=== PATIENT | male | born 1965 | race Caucasian/White ===

== ENCOUNTER → 2016-05-03 | Outpatient (CLI) | payer OTHER ==
[~2016-05-03] MED LIST: /ONDA4TA OR; ALLO300T OR; ASPI1TAB24 PO; ASPI81TA83 OR; BACTRIM OR; CODCAP PR; COLA100C2 PO; DEXAMETHASONE OR; LEVA500T PO; MULTIVIT PO; OMEP20TA7 OR; OXYC15TA76 PO; PERC5TAB8 OR; PLAV75TA2 OR; SENN8.6T14 OR; SENNSYP OR; SULF800T OR; VALT500T OR; [UNRECOGNIZED DRUG - OTHER] PO
[2016-05-03 11:30] LABS: MEAN CORPUSCULAR HEMOGLOBIN 30.2 pg (27.0-33.0); MEAN CORPUSCULAR HGB CONC 33.6 g/dl (32.0-36.5); MEAN CORPUSCULAR VOLUME 89.9 fl (80.0-96.0); RED CELL DISTRIBUTION WIDTH 12.7 % (11.5-14.5); WHITE BLOOD COUNT 4.9 K/mm3 (4.0-10.0)
[2016-05-03 11:38] LABS: INR 0.96
[2016-05-03 12:19] LABS: ALBUMIN 3.9 GM/DL (3.2-5.2); ALBUMIN/GLOBULIN RATIO 1.08 (1.00-1.93); ALKALINE PHOSPHATASE 77 U/L (45-117); ALT/SGPT 58 U/L (12-78); ANION GAP 8 MEQ/L (8-16); AST/SGOT 32 U/L (15-37); BILIRUBIN,TOTAL 0.3 MG/DL (0.2-1.0); BLOOD UREA NITROGEN 27 MG/DL (7-18); CALCIUM LEVEL 9.7 MG/DL (8.5-10.1); CARBON DIOXIDE LEVEL 29 MEQ/L (21-32); CHLORIDE LEVEL 105 MEQ/L (98-107); CREATININE FOR GFR 0.95 MG/DL (0.70-1.30); GLOMERULAR FILTRATION RATE > 60.0 (>56); GLUCOSE, FASTING 97 MG/DL (70-105); POTASSIUM SERUM 4.4 MEQ/L (3.5-5.1); SODIUM LEVEL 142 MEQ/L (136-145); TOTAL PROTEIN 7.5 GM/DL (6.4-8.2)
--- NOTE | 2016-05-03 20:54 | REP ---
Clinical: Dystonia. Comparison: 04/29/2013 . Technique: PA and lateral. Findings: The mediastinum and cardiac silhouette are normal. The lung villatoro are clear and without acute consolidation, effusion, or pneumothorax. The skeletal structures are intact and normal. Impression: 1. No acute cardiopulmonary process. Signed by Ermias White MD 05/03/2016 08:39 P
--- NOTE | 2016-05-05 16:37 | ECGEPIP ---
Stationary ECG Study [facility] Test Date: 2016-05-03 Pat Name: CARMEN DESAI Department: Room: - Gender: M System Admin: : 1965 Requested By: Curtis Briones Order Number: [id number] Reading MD: Rip Alba Measurements Intervals [place] Rate: 65 P: 63 NH: 157 QRS: 23 QRSD: 87 T: 23 QT: 384 QTc: 401 Interpretive Statements SINUS RHYTHM NORMAL Electronically Signed On 05-05-2016 16:37:12 EST by Rip Alba
== END ==
LOC: M ADMPAT 09:47
PROVIDERS: ATTEND Orthopaedic Surgery
DX: Z01.818 Encounter for other preprocedural examination (principal); M16.11 Unilateral primary osteoarthritis, right hip; Z79.899 Other long term (current) drug therapy

== ENCOUNTER 2016-05-17 07:28 | Inpatient (IN) | payer OTHER ==
[2016-05-03 10:27] VITALS: BP 145/100
--- NOTE | 2016-05-12 14:31 | HPE ---
DATE OF ADMISSION: 05/17/2016 CHIEF COMPLAINT: Right hip pain. HISTORY OF PRESENT ILLNESS: This is a pleasant 51-year-old male with progressively worsening right hip pain and stiffness. He has failed to improve with conservative treatment. He has elected for surgery for his continued symptoms. He has pain with weightbearing activities and his activities of daily living. X-rays of his hip are notable for advanced avascular necrosis (AVN) with collapse of the femoral head. He has consented for a right total hip arthroplasty by Dr. Curtis Briones. Medical optimization was performed by Dr. Garg at the [facility] ([place]). ALLERGIES: No known allergies. CURRENT MEDICATIONS: - hydrocodone 5/325 one every 6 hours as needed - baby aspirin once a day PAST MEDICAL HISTORY: This patient does have multiple myeloma and some dystonia. PAST SURGICAL HISTORY: None. 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 He does not smoke and he occasionally drinks alcohol. FAMILY HISTORY: Noncontributory. REVIEW OF SYSTEMS: This patient denies chest pain, heart palpitations, cough, wheezing, difficulty breathing and shortness of breath. He denies abdominal pain, nausea, vomiting, diarrhea or constipation. He denies recent upper respiratory infection or urinary tract infection symptoms. He does complain of persistent pain in his right hip and pain with weightbearing activities of his right hip. PHYSICAL EXAMINATION General: He is a well-nourished, well-developed in no acute distress, adult male. He walks with a moderate limp favoring his right lower extremity. He is not using assistive devices. Vital signs: He is 5 feet 10, weighs 202 pounds, with a temperature of 96.7, blood pressure 121/82, respirations of 17, and pulse of 85. Neck was supple without adenopathy or jugular venous distension. There were no carotid bruits appreciated upon auscultation. Lungs were clear to auscultation without rales or wheeze throughout. Heart regular rate and rhythm. Abdomen: Bowel sounds were present. Extremities: Examination of the hip revealed intact skin without erythema, edema or ecchymosis. He had decreased range of motion on internal and external rotation of the hip secondary to pain and stiffness. The limb is neurovascularly intact. LABORATORY DATA: Chest x-ray showed no acute cardiopulmonary disease processes. EKG showed sinus rhythm at 65 beats per minute. Urinalysis (UA) was within normal limits with a specific gravity of 1.019. Protime 12.9, INR 0.96. CBC was within normal limits. Sedimentation rate was 19. Glucose 97, BUN 27, creatinine 0.95, sodium 142, potassium 4.4. Urine culture showed no growth. Nasal and sinus culture showed normal jordan. IMPRESSION: Symptomatic avascular necrosis (AVN) of the right hip joint. PLAN: Consented for a right total hip arthroplasty by Dr. Curtis Briones.
[~2016-05-17] VITALS: Ht 177.8 cm; Wt 91.0 kg
[2016-05-17] VITALS (7 sets, daily range): BP systolic 106–126; BP diastolic 56–79
[2016-05-17] MEDS ORDERED: LR 1,000 ML IV SCH ×3 (07:45→12:15)
[2016-05-17] MEDS ORDERED: BUPIVACAINE HCL 0.25% 10 ML VIAL As Ordered ONE (09:32)
[2016-05-17] MEDS ORDERED: BUPIVACAINE HCL 0.25% 30 ML VIAL As Ordered ONE (09:32)
[2016-05-17] MEDS ORDERED: ceFAZolin 1GM INJ (J0690) As Ordered ONE (09:32)
[2016-05-17] MEDS ORDERED: EPINEPHrine INJ 1 MG/ML 1ML VIAL/AMP As Ordered ONE (09:32)
[2016-05-17] MEDS ORDERED: TRANEXAMIC ACID 100 MG/ML 10ML VIAL As Ordered ONE (09:32)
[2016-05-17] MEDS ORDERED: fentaNYL 100 MCG/2 ML INJECTION (J3010) As Ordered ONE ×2 (09:57→10:01)
[2016-05-17] MEDS ORDERED: PROPOFOL 200 MG/20 ML VIAL As Ordered ONE (10:27)
[2016-05-17] MEDS ORDERED: MIDAZOLAM INJ 2 MG/2 ML VIAL (J2250) As Ordered ONE (10:27)
[2016-05-17] MEDS ORDERED: LIDOCAINE 2% INJ 100 MG/5 ML SDV (FOR ANES.) As Ordered ONE (10:27)
[2016-05-17] MEDS ORDERED: fentaNYL 100 MCG/2 ML INJECTION (J3010) XX ONE (10:31)
[2016-05-17] MEDS ORDERED: TRANEXAMIC ACID 100 MG/ML 10ML VIAL XX ONE (10:31)
[2016-05-17] MEDS ORDERED: BUPIVACAINE HCL 0.25% 30 ML VIAL XX ONE (10:31)
[2016-05-17] MEDS ORDERED: ceFAZolin 1GM INJ (J0690) IR ONE (10:31)
[2016-05-17] MEDS ORDERED: EPINEPHrine INJ 1 MG/ML 1ML VIAL/AMP XX ONE (10:31)
[2016-05-17] MEDS ORDERED: ePHEDrine SULFATE 25 MG/5 ML(5MG/ML) SYRINGE As Ordered ONE (10:55)
[2016-05-17] MEDS ORDERED: MORPHINE PCA 1MG/ML 100ML CADD As Ordered ONE (11:53)
[2016-05-17] MEDS ORDERED: MORPHINE 2 MG/ML 1ML SYRINGE IV PRN (12:15)
[2016-05-17] MEDS ORDERED: ONDANSETRON 4MG/2ML VIAL (J2405) IV PRN ×2 (12:15→12:30)
[2016-05-17] MEDS ORDERED: fentaNYL 100 MCG/2 ML INJECTION (J3010) IV PRN (12:15)
[2016-05-17] MEDS ORDERED: NALBUPHINE HCL 10 MG/ML AMP (J2300) IV PRN (12:30)
[2016-05-17] MEDS ORDERED: MORPHINE PCA 1MG/ML 100ML CADD IV PRN (12:30)
[2016-05-17] MEDS ORDERED: NALOXONE INJ 0.4 MG/1 ML VIAL (J2310) IV PRN (12:30)
[2016-05-17] MEDS ORDERED: ACETAMINOPHEN TAB 650MG DOSE (2X325MG) PO PRN (12:30)
[2016-05-17] MEDS ORDERED: diphenhydrAMINE INJ 50MG/ML VIAL (J1200) IV PRN (12:30)
[2016-05-17] MEDS ORDERED: EPIDURAL/PCA KEYS XX PRN (12:30)
[2016-05-17] MEDS ORDERED: FLEET ENEMA PR PRN (12:30)
--- NOTE | 2016-05-17 12:40 | RO ---
DATE OF PROCEDURE: 05/17/2016 PREPROCEDURE DIAGNOSIS: Right hip avascular necrosis. POSTPROCEDURE DIAGNOSIS: Right hip avascular necrosis. OPERATION PERFORMED: Right total hip replacement. SURGEON: Curtis Briones MD FOSTER CARE THERAPIST: ELOY Yusuf HISTORY: A 51-year-old male with increasing pain and limited range of motion due to avascular necrosis of the right hip. FINDINGS AT SURGERY: Avascular necrosis of femoral head with grossly loose fracture and bone on the acetabular side. The patient did have severe chondromalacia superiorly where that piece had been rubbing. A 56 cup was installed. The 36 mm liner was utilized. A #4 [place] stem with a 1.5 mm neck and a 36 head. BLOOD LOSS: 200 mL. Mr. Peng helped by retracting vital structures and manipulating the leg in order to expedite the procedure. DESCRIPTION OF PROCEDURE: After spinal anesthesia, Gill catheter was placed. The patient was positioned right side up in the [place] and padded appropriately. Leg was prepped and draped free. An incision made anterolateral exposure. The vastus lateralis was divided in line with its fibers. The abductors reflected anteriorly. The labrum was incised. The hip dislocated. Intermedullary canal was opened with a reamer and reamed to a number 4. The neck was divided and the head delivered with the above findings. Then the acetabulum was exposed. There was a tremendous amount of edematous tissue in the area that was quite friable. Labrum was excised and we sequentially reamed from a 48 up to a 55 mm. At that point, there was good bleeding bone on the anterior rim. We were running out of tissue anteriorly in terms of the acetabulum. The 55 reamer had a good rim fit at that point and it was removed and the area irrigated. A 56 mm cup was malleted into place and the apex hole eliminator installed, as was the polyethylene. We broached to a #4. Trial reduction done with the 1.5 x 36 head/neck combination. Upon dislocating, I felt the acetabulum might have moved and so the stem was removed. Acetabular exposure was obtained and an impactor utilized to reposition the cup. It was then malleted into place. It was firmly fixed. I pushed on either side and was unable to move it. It was in acceptable position. The femoral canal was then irrigated with orthopedic solution and the permanent stem malleted into place. The Larkin taper was engaged and the hip reduced. Capsule closed with heavy PDS suture. The PainBuster catheter was threaded into the joint for postop analgesia. TXA was instilled into the joint for postoperative hemostasis. The abductors were then repaired back to their insertion at the trochanter with heavy PDS suture. The same with the IT band. Subcutaneous closed with #2-0 PDS. Aida for skin. Estimated blood loss around 200 mL. None replaced intraoperatively. The patient was then turned flat, abduction pillow applied. Sequential compression stockings applied. The patient discharged to recovery room.
[2016-05-17] MEDS: PERCOCET 5MG/325MG TAB PO PRN ×2 (13:40→14:00)
[2016-05-17] MEDS ORDERED: PERCOCET 5MG/325MG TAB As Ordered ONE (13:49)
[2016-05-17] MEDS: D5W/0.45% SODIUM CHLORIDE 1,000 ML IV SCH ×2 (15:46→22:30)
[2016-05-17] MEDS ORDERED: PATIENT IS CURRENTLY ON AN ON-Q PAIN BUSTER PAIN RELIEF SYSTEM XX SCH (16:45)
[2016-05-17] MEDS ORDERED: WARFARIN SOD 5 MG TAB PO ONE (17:00)
[2016-05-18 02:00] VITALS: BP 115/69
[2016-05-18 06:00] VITALS: BP 121/66
[2016-05-18] MEDS ORDERED: ONDANSETRON 4 MG TAB (S0181) PO PRN (06:45)
[2016-05-18] MEDS ORDERED: PERCOCET 5MG/325MG TAB PO PRN (06:45)
[2016-05-18 06:53] LABS: MEAN CORPUSCULAR HEMOGLOBIN 30.4 pg (27.0-33.0); MEAN CORPUSCULAR HGB CONC 33.4 g/dl (32.0-36.5); MEAN CORPUSCULAR VOLUME 90.9 fl (80.0-96.0); RED CELL DISTRIBUTION WIDTH 13.5 % (11.5-14.5); WHITE BLOOD COUNT 5.5 K/mm3 (4.0-10.0)
[2016-05-18 06:58] LABS: INR 1.15
[2016-05-18] MEDS: PERCOCET 5MG/325MG TAB PO PRN ×2 (08:33→12:32)
[2016-05-18] MEDS: MOM 30ML SUSPENSION UDC PO SCH (09:43)
[2016-05-18] MEDS: SENOKOT S TAB PO SCH ×2 (09:44→19:50)
[2016-05-18] MEDS: MIRALAX *UNIT DOSE* 17GM PACKET PO SCH (09:44)
[2016-05-18 10:00] VITALS: BP 122/73
--- NOTE | 2016-05-18 10:42 | REP ---
Right hip: Two views. History: Postop check placement. Findings: A right hip arthroplasty is seen in good position. Lateral skin bruna and soft tissue swelling are noted. Signed by Víctor Schmidt MD 05/18/2016 08:09 P
[2016-05-18 14:00] VITALS: BP 110/64
[2016-05-18] MEDS ORDERED: WARFARIN SOD 5 MG TAB PO ONE (17:00)
[2016-05-18 22:00] VITALS: BP 126/73
[2016-05-19 06:53] LABS: INR 1.14
[2016-05-19] MEDS ORDERED: MAGNESIUM CITRATE 300 ML BTL PO ONE (07:45)
[2016-05-19] MEDS: MOM 30ML SUSPENSION UDC PO SCH (08:08)
[2016-05-19] MEDS: MIRALAX *UNIT DOSE* 17GM PACKET PO SCH (08:09)
[2016-05-19] MEDS: SENOKOT S TAB PO SCH (08:09)
[2016-05-19] MEDS: PERCOCET 5MG/325MG TAB PO PRN (08:09)
[2016-05-19] MEDS ORDERED: PERC5TAB6 PO (08:11)
[2016-05-19] MEDS ORDERED: COUM2.5T11 PO (08:11)
[2016-05-19] MEDS ORDERED: INFLUENZA QUADRIVALENT PF VACCINE 0.5ML SYRINGE/VIAL (90686) IM ONE (09:00)
[2016-05-19] MEDS ORDERED: WARFARIN SOD 7.5 MG TAB PO ONE (17:00)
--- NOTE | 2016-05-23 17:30 | DSES ---
DATE OF ADMISSION: 05/17/2016 DATE OF DISCHARGE: 05/19/2016 ADMITTING DIAGNOSIS: Right hip avascular necrosis. OTHER DIAGNOSES: 1. Multiple myeloma. 2. Dystonia. DISCHARGE DIAGNOSIS: Right hip avascular necrosis status post right total hip arthroplasty. HISTORY OF PRESENT ILLNESS: Patient is a 51-year-old male with symptomatic right hip avascular necrosis. He has consented for a right total hip arthroplasty with Dr. Briones. Patient was admitted on the day of surgery for this elective procedure. OPERATION PERFORMED: Right total hip arthroplasty. HOSPITAL COURSE: The patient underwent a right total hip arthroplasty under spinal anesthesia which was uneventful. His hospital course was without complication. Patient was up weightbearing as tolerated with a walker. He will continue his preoperative medications and diet. Patient will take Coumadin and use thromboembolic deterrent stockings for 30 days for deep venous thrombosis prophylaxis. Patient will followup in our office in 10-14 days for a wound check and staple removal. The patient is encouraged to contact our office sooner if there is any increased pain, drainage, bleeding, redness, numbness and tingling in his extremity, fever greater than 101 degrees, or any other concerns. Please see the medical record for further details.
== END 2016-05-19 12:50 | disposition home or self-care (01) | DRG 470 ==
LOC: M OR 07:28 → M MS5PR 14:15
PROVIDERS: ADMIT Orthopaedic Surgery; ATTEND Orthopaedic Surgery
PROC: 0SR90JZ Replacement of Right Hip Joint with Synthetic Substitute, Open Approach (ICD-10-PCS; principal; 2016-05-17 09:00)
DX: M87.051 Idiopathic aseptic necrosis of right femur (principal)

== ENCOUNTER → 2016-05-24 | Outpatient (REF) | payer OTHER ==
[~2016-05-24] MED LIST changes: +COUM2.5T11 PO; +PERC5TAB6 PO
[2016-05-24 15:13] LABS: INR 1.16
== END ==
LOC: M LAB REF 14:35
PROVIDERS: ATTEND Nurse Practitioner Family
DX: Z79.01 Long term (current) use of anticoagulants (principal)

== ENCOUNTER → 2016-05-26 | Outpatient (REF) | payer OTHER ==
[2016-05-26 18:07] LABS: INR 1.03
== END ==
LOC: M LAB REF 16:47
PROVIDERS: ATTEND Nurse Practitioner Family
DX: Z47.1 Aftercare following joint replacement surgery (principal); Z79.01 Long term (current) use of anticoagulants

== ENCOUNTER → 2016-05-30 | Outpatient (REF) | payer OTHER ==
[2016-05-30 12:44] LABS: INR 1.35
== END ==
LOC: M LAB REF 11:44
PROVIDERS: ATTEND Nurse Practitioner Family
DX: Z47.1 Aftercare following joint replacement surgery (principal); Z79.01 Long term (current) use of anticoagulants

== ENCOUNTER → 2016-07-01 | Outpatient (REF) | payer OTHER ==
[2016-07-01 12:52] LABS: TOTAL PROTEIN 7.2 GM/DL (6.4-8.2)
[2016-07-03 00:06] LABS: FREE KAPPA LIGHT CHAINS SERUM 134.75 mg/L (3.30-19.40); FREE LAMBDA LIGHT CHAINS SERUM 9.7 mg/L (5.71-26.30); KAPPA/LAMBDA RATIO SERUM 13.89 (0.26-1.65)
[2016-07-04 12:37] LABS: ALBUMIN 4.11 GM/DL (3.29-5.55); ALBUMIN % 57.1 % (55.8-66.1); GAMMA GLOBULIN % 16.8 % (11.1-18.8)
== END ==
LOC: M LAB REF 12:20
PROVIDERS: ATTEND Internal Medicine Medical Oncology
DX: C90.00 Multiple myeloma not having achieved remission (principal)

== ENCOUNTER → 2016-09-27 | Outpatient (REF) | payer OTHER ==
[2016-09-27 13:37] LABS: TOTAL PROTEIN 7.3 GM/DL (6.4-8.2)
[2016-09-29 00:07] LABS: FREE KAPPA LIGHT CHAINS SERUM 273.31 mg/L (3.30-19.40); FREE LAMBDA LIGHT CHAINS SERUM 6.68 mg/L (5.71-26.30); KAPPA/LAMBDA RATIO SERUM 40.91 (0.26-1.65)
[2016-09-29 12:29] LABS: ALBUMIN 4.31 GM/DL (3.29-5.55); GAMMA GLOBULIN % 16.5 % (11.1-18.8)
== END ==
LOC: M LAB REF 12:20
PROVIDERS: ATTEND Internal Medicine Medical Oncology
DX: C90.00 Multiple myeloma not having achieved remission (principal)

== ENCOUNTER → 2017-02-01 | Outpatient (REF) | payer OTHER ==
[~2017-02-01] MED LIST changes: +ASPI-161 PO; -ASPI1TAB24 PO; -COUM2.5T11 PO; +COUM2.5T17 PO; +PERC5TAB12 PO; -PERC5TAB6 PO
[2017-02-01 17:03] LABS: IMMUNOGLOBULIN A 30.2 MG/DL (70-400); IMMUNOGLOBULIN G 1210 MG/DL (681-1648)
[2017-02-01 17:58] LABS: IMMUNOGLOBULIN M 18.4 MG/DL (40-230)
[2017-02-02 12:55] LABS: ALBUMIN 4.15 GM/DL (3.29-5.55); ALBUMIN % 59.3 % (55.8-66.1)
[2017-02-04 00:07] LABS: FREE KAPPA LIGHT CHAINS SERUM 514.7 mg/L (3.3-19.4); FREE LAMBDA LIGHT CHAINS SERUM 2.6 mg/L (5.7-26.3); KAPPA/LAMBDA RATIO SERUM 197.96 (0.26-1.65)
== END ==
LOC: M LAB REF 15:25
PROVIDERS: ATTEND Internal Medicine Medical Oncology
DX: C90.00 Multiple myeloma not having achieved remission (principal)

== ENCOUNTER → 2017-03-21 | Outpatient (REF) | payer OTHER ==
[2017-03-21 14:39] LABS: IMMUNOGLOBULIN G 1210 MG/DL (681-1648); TOTAL PROTEIN 7.1 GM/DL (6.4-8.2)
[2017-03-21 15:16] LABS: IMMUNOGLOBULIN A 24.9 MG/DL (70-400)
[2017-03-21 15:17] LABS: IMMUNOGLOBULIN M 18.5 MG/DL (40-230)
[2017-03-22 14:06] LABS: ALBUMIN 4.23 GM/DL (3.29-5.55); ALBUMIN % 59.6 % (55.8-66.1); GAMMA GLOBULIN % 15.8 % (11.1-18.8)
[2017-03-23 00:06] LABS: FREE KAPPA LIGHT CHAINS SERUM 685.5 mg/L (3.3-19.4); KAPPA/LAMBDA RATIO SERUM 228.5 (0.26-1.65)
== END ==
LOC: M LAB REF 13:43
PROVIDERS: ATTEND Internal Medicine Medical Oncology
DX: C90.00 Multiple myeloma not having achieved remission (principal)

== ENCOUNTER → 2017-05-03 | Outpatient (REF) | payer OTHER ==
[2017-05-03 14:39] LABS: IMMUNOGLOBULIN G 1210 MG/DL (681-1648); TOTAL PROTEIN 7.8 GM/DL (6.4-8.2)
[2017-05-03 15:06] LABS: IMMUNOGLOBULIN A 22.6 MG/DL (70-400); IMMUNOGLOBULIN M 11.9 MG/DL (40-230)
[2017-05-04 11:50] LABS: ALBUMIN 4.35 GM/DL (3.29-5.55); ALBUMIN % 55.8 % (55.8-66.1); ALPHA-1-GLOBULIN % 4.8 % (2.9-4.9); ALPHA-1-GLOBULINS 0.37 GM/DL (0.17-0.41); ALPHA-2-GLOBULINS 1.07 GM/DL (0.42-0.99); ALPHA-2-GLOBULINS % 13.7 % (7.1-11.8); BETA-1-GLOBULINS 0.44 GM/DL (0.28-0.60); BETA-1-GLOBULINS % 5.6 % (4.7-7.2); BETA-2-GLOBULINS 0.35 GM/DL (0.19-0.55); BETA-2-GLOBULINS % 4.5 % (3.2-6.5); GAMMA GLOBULIN % 15.6 % (11.1-18.8); GAMMA GLOBULINS 1.22 GM/DL (0.65-1.58)
[2017-05-06 00:06] LABS: FREE KAPPA LIGHT CHAINS SERUM 829.7 mg/L (3.3-19.4); FREE LAMBDA LIGHT CHAINS SERUM 3.4 mg/L (5.7-26.3); KAPPA/LAMBDA RATIO SERUM 244.03 (0.26-1.65)
== END ==
LOC: M LAB REF 13:08
DX: C90.00 Multiple myeloma not having achieved remission (principal)
CPT/HCPCS: 84165

== ENCOUNTER → 2017-07-12 | Outpatient (REF) | payer OTHER ==
[2017-07-12 13:45] LABS: URINE TOTAL PROTEIN < 5.0 MG/DL (0-12)
[2017-07-12 13:53] LABS: IMMUNOGLOBULIN A 29.7 MG/DL (70-400); IMMUNOGLOBULIN G 613 MG/DL (681-1648); IMMUNOGLOBULIN M 24.9 MG/DL (40-230); TOTAL PROTEIN 6.5 GM/DL (6.4-8.2)
[2017-07-14 00:06] LABS: FREE KAPPA LIGHT CHAINS SERUM 8.5 mg/L (3.3-19.4); FREE LAMBDA LIGHT CHAINS SERUM 7.7 mg/L (5.7-26.3)
[2017-07-14 13:48] LABS: ALBUMIN 3.95 GM/DL (3.29-5.55); ALBUMIN % 60.8 % (55.8-66.1); ALPHA-1-GLOBULIN % 5.2 % (2.9-4.9); ALPHA-2-GLOBULINS % 13.6 % (7.1-11.8); BETA-1-GLOBULINS % 6.1 % (4.7-7.2); BETA-2-GLOBULINS % 5.1 % (3.2-6.5); GAMMA GLOBULIN % 9.2 % (11.1-18.8)
[2017-07-14 13:49] LABS: ALPHA-1-GLOBULINS 0.34 GM/DL (0.17-0.41); ALPHA-2-GLOBULINS 0.88 GM/DL (0.42-0.99); BETA-2-GLOBULINS 0.33 GM/DL (0.19-0.55)
== END ==
LOC: M LAB REF 12:59
DX: C90.00 Multiple myeloma not having achieved remission (principal)

== ENCOUNTER → 2017-07-26 | Outpatient (REF) | payer OTHER ==
[2017-07-26 14:20] LABS: IMMUNOGLOBULIN A 33.5 MG/DL (70-400); IMMUNOGLOBULIN G 575 MG/DL (681-1648); TOTAL PROTEIN 6.6 GM/DL (6.4-8.2)
[2017-07-26 14:27] LABS: URINE TOTAL PROTEIN 14.4 MG/DL (0-12)
[2017-07-26 14:56] LABS: IMMUNOGLOBULIN M 21.1 MG/DL (40-230)
[2017-07-27 13:08] LABS: ALBUMIN 4.03 GM/DL (3.29-5.55); ALBUMIN % 61.1 % (55.8-66.1); ALPHA-1-GLOBULINS 0.33 GM/DL (0.17-0.41); ALPHA-2-GLOBULINS % 13.9 % (7.1-11.8); BETA-1-GLOBULINS % 6.1 % (4.7-7.2); BETA-2-GLOBULINS % 5.1 % (3.2-6.5); GAMMA GLOBULIN % 8.8 % (11.1-18.8)
[2017-07-27 13:09] LABS: ALPHA-2-GLOBULINS 0.92 GM/DL (0.42-0.99); BETA-2-GLOBULINS 0.34 GM/DL (0.19-0.55); GAMMA GLOBULINS 0.58 GM/DL (0.65-1.58)
[2017-07-27 14:02] LABS: UPEP INTERPRETATION NO M-SPIKE NOTED
[2017-07-28 00:07] LABS: FREE KAPPA LIGHT CHAINS SERUM 6.9 mg/L (3.3-19.4); FREE LAMBDA LIGHT CHAINS SERUM 6.7 mg/L (5.7-26.3); KAPPA/LAMBDA RATIO SERUM 1.03 (0.26-1.65)
== END ==
LOC: M LAB REF 13:08
DX: C90.00 Multiple myeloma not having achieved remission (principal)
CPT/HCPCS: 84165

== ENCOUNTER → 2017-08-23 | Outpatient (REF) | payer OTHER ==
[2017-08-23 13:58] LABS: URINE TOTAL PROTEIN 16.6 MG/DL (0-12)
[2017-08-23 14:08] LABS: IMMUNOGLOBULIN G 544 MG/DL (681-1648); TOTAL PROTEIN 6.2 GM/DL (6.4-8.2)
[2017-08-23 15:10] LABS: IMMUNOGLOBULIN M 20.6 MG/DL (40-230)
[2017-08-24 11:37] LABS: ALBUMIN % 60.6 % (55.8-66.1); ALPHA-1-GLOBULIN % 5.3 % (2.9-4.9); ALPHA-2-GLOBULINS % 14.6 % (7.1-11.8); BETA-1-GLOBULINS % 5.9 % (4.7-7.2); BETA-2-GLOBULINS % 5.1 % (3.2-6.5)
[2017-08-24 11:38] LABS: ALBUMIN 3.76 GM/DL (3.29-5.55); ALPHA-1-GLOBULINS 0.33 GM/DL (0.17-0.41); ALPHA-2-GLOBULINS 0.91 GM/DL (0.42-0.99); BETA-1-GLOBULINS 0.37 GM/DL (0.28-0.60); BETA-2-GLOBULINS 0.32 GM/DL (0.19-0.55); GAMMA GLOBULIN % 8.5 % (11.1-18.8); GAMMA GLOBULINS 0.53 GM/DL (0.65-1.58)
[2017-08-24 15:15] LABS: UPEP INTERPRETATION NO M-SPIKE NOTED; URINE VOLUME RANDOM ML
[2017-08-25 00:07] LABS: FREE KAPPA LIGHT CHAINS SERUM 8.2 mg/L (3.3-19.4); FREE LAMBDA LIGHT CHAINS SERUM 6.5 mg/L (5.7-26.3); KAPPA/LAMBDA RATIO SERUM 1.26 (0.26-1.65)
== END ==
LOC: M LAB REF 12:57
DX: C90.02 Multiple myeloma in relapse (principal)

== ENCOUNTER → 2018-06-04 | Outpatient (REF) | payer OTHER ==
[~2018-06-04] MED LIST changes: +ACYC400T PO; +ASPI81TA85 PO; +ELIQ2.5T PO; +POMA4CAP PO
== END ==
LOC: M LABDRAW1 11:40
PROVIDERS: ATTEND Orthopaedic Surgery
DX: M16.12 Unilateral primary osteoarthritis, left hip (principal)

== ENCOUNTER → 2018-07-09 | Outpatient (CLI) | payer OTHER ==
--- NOTE | 2018-07-10 06:21 | REP ---
WHOLE-BODY BONE SCAN 07/09/2018 COMPARISON: 07/29/2010 bone scan, MRI 05/30/2018 lumbar spine, right hip 04/05/2016, pelvis MRI 03/28/2016. TECHNIQUE: The patient received a bolus 21.8 mCi technetium 99m - MDP via IV with delayed anterior and posterior whole body images with oblique anterior and posterior thorax pelvis images with lateral views of the feet and head/neck. CLINICAL HISTORY: Multiple myeloma since 2010 with known left hip AVN from MRI 03/2016. Has had radiation therapy and ongoing chemotherapy for myeloma. FINDINGS: The whole body images demonstrate interval right total hip arthroplasty. There is a marked increased uptake in the acetabulum and left femoral head in this patient with known avascular necrosis of the left hip and concurrent multiple myeloma since 2010. There is improvement in uptake in the bilateral ribs with the multiple anterior rib and uptakes nearly all resolved and with uptake in a couple of anterior and posterior ribs as opposed to numerous. There is a gentle S-shaped scoliotic curvature levoconvex in the mid thoracic dextroconvex in the upper lumbar region. I would note that the lumbar spine shows relatively little uptake and yet the MRI lumbar spine shows multiple lesions throughout the lumbar vertebrae from his known myeloma. Long bones show no increased uptake in the left femur with subtle increased uptake in the right femoral shaft and intertrochanteric regions from the arthroplasty of the right hip. Symmetric uptake in the AC, glenohumeral and sternoclavicular joints noted. Uptake in the paranasal sinus regions as well as the right mandible from sinus and dental disease. SI joints symmetric and unremarkable. There is activity in the kidneys and bladder. IMPRESSION: 1. Dramatic uptake in the left hip, acetabulum, likely related to the patient's known avascular necrosis seen on MRI in 2015. He had a right hip arthroplasty since that time because of stage IV AVN in 2016. 2. Improvement in the pattern of uptake in the anterior and posterior ribs. Only a few foci now visible compared to many on the previous exam. 3. Long bone uptake grossly intact. The spine is notable for paucity of any uptake despite obvious significant myelomatous infiltration of vertebral levels throughout the lumbar spine MRI. This is typical for myeloma in understating the presence of disease on bone scan. Electronically Signed by Avtar Rowe MD 07/10/2018 08:30 P
== END ==
LOC: M RAD 08:00
PROVIDERS: ATTEND Internal Medicine Hematology & Oncology
DX: C90.00 Multiple myeloma not having achieved remission (principal); Z96.641 Presence of right artificial hip joint
CPT/HCPCS: 78306; A9503

== ENCOUNTER → 2018-07-31 | Outpatient (CLI) | payer OTHER ==
[~2018-07-31] MED LIST changes: -/ONDA4TA OR; +ONDA-1 OR
--- NOTE | 2018-07-31 11:14 | REP ---
SKELETAL SURVEY: 16 views. HISTORY: Multiple myeloma. COMPARISON STUDY: November 27, 2014. TECHNIQUE: AP and lateral views of the skull, C-spine, T-spine, L-spine are obtained. AP views of each humerus and femur are obtained. An AP pelvis and an AP view of the chest and ribs are included. FINDINGS: There are numerous punched out lytic radiolucencies in the calvarium. These appear somewhat more numerous and several are a little larger. They are all small however. The largest of these radiolucencies measures 1.4 cm in greatest diameter. Visualized paranasal sinuses are clear. No mandibular lesion is appreciated. AP and lateral views of the cervical spine show mild degenerative disc changes at C3-4 and C5-6. Alignment is normal in the cervical spine. AP view of the pelvis demonstrates a right hip prosthesis. There is advanced osteoarthritis of the left hip with subcortical cyst formation on both sides of the hip articulation, reactive sclerosis, and flattening collapse and remodeling of the femoral head. The arthropathy and femoral head collapse as well as much of the sclerosis are new findings compared with the November 27, 2014 prior study. There is a large subcortical cyst in the acetabulum which is unchanged from the 2014 study. This measures 3.3 cm. There is another cystic lucency higher up in the iliac bone on the left which is also unchanged. This has a well circumscribed sclerotic margin. No definite lytic malignant lesion in the pelvis. No lytic lesion is seen in either femur. There is a new lytic lesion in the right humerus at mid shaft level. No left humeral lesion is seen. There is slight wedging of the L1 vertebral body unchanged from the 2014 study. Degenerative disc changes are noted in the lower lumbar spine. No new vertebral body collapse is seen. In the thoracic spine, there is fairly advanced wedging one of the mid-thoracic vertebral bodies unchanged from the 2015 study. Degenerative disc changes are noted. No new vertebral body fracture or collapse is seen. There are multiple old healed rib fractures noted bilaterally. There is diffuse osteoporosis. No new lytic lesion. There are lytic lesions in the right glenoid and along the lateral border of the right scapula which appear a little more prominent. Question lytic lesion along the scapular border on the left as a new finding. IMPRESSION: There is evidence of slight progression since the 2014 study as above. Electronically Signed by Víctor Schmidt MD 07/31/2018 01:19 P
== END ==
LOC: M RAD 10:02
PROVIDERS: ATTEND Internal Medicine Hematology & Oncology
DX: C90.00 Multiple myeloma not having achieved remission (principal)

== ENCOUNTER → 2018-08-03 | Outpatient (CLI) | payer OTHER ==
--- NOTE | 2018-08-03 14:07 | REP ---
Chest x-ray: Two views. History: Preoperative testing. History of multiple myeloma. Comparison study: May 03, 2016. Findings: The lungs are symmetrically aerated and clear. Pleural angles are sharp. Heart size is normal. Pulmonary vasculature is not increased. There are multiple old rib fractures bilaterally. There is old moderate wedging in one of the mid-thoracic vertebrae. These findings are unchanged from May 03, 2016. No new fracture or collapse is seen. A stable radiolucent lesion is seen in the right glenoid region. Impression: No active cardiopulmonary disease. Multiple old healed rib fractures and old wedging of one of the mid-thoracic vertebrae. There is radiolucency in the right glenoid region unchanged consistent with this patient's history of myeloma. Electronically Signed by Víctor Schmidt MD 08/03/2018 02:39 P
== END ==
LOC: M RAD 12:02
PROVIDERS: ATTEND Orthopaedic Surgery
DX: Z01.812 Encounter for preprocedural laboratory examination (principal); Z01.811 Encounter for preprocedural respiratory examination; M16.12 Unilateral primary osteoarthritis, left hip; Z87.81 Personal history of (healed) traumatic fracture

== ENCOUNTER 2018-08-06 09:29 | Inpatient (IN) | payer OTHER ==
--- NOTE | 2018-08-02 12:44 | HPE ---
DATE OF ADMISSION: 08/06/2018 CHIEF COMPLAINT: Left hip pain. HISTORY OF PRESENT ILLNESS: This is a pleasant 53-year-old male with progressively worsening left hip pain and stiffness. He has failed to improve with conservative treatment. He has elected for surgery for his continued symptoms. He has pain with weightbearing activities and his activities of daily living. X-rays of his hip are notable for advanced osteoarthritis of the left hip joint. He has consented for a left total hip arthroplasty by Dr. Rafi Gonzales. Medical optimization was performed [facility] Garg [facility]. ALLERGIES: None. CURRENT MEDICATIONS: None. He does use a CPAP, however PAST MEDICAL HISTORY: Multiple myeloma. Obstructive sleep apnea (JESS). Gastroesophageal reflux disease (GERD). PAST SURGICAL HISTORY: Right total hip arthroplasties. 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 Does not smoke. Occasionally drinks alcohol. FAMILY HISTORY: Noncontributory. REVIEW OF SYSTEMS: This patient denies chest pain, heart palpitations, cough, wheezing, difficulty breathing and shortness of breath. He denies abdominal pain, nausea, vomiting, diarrhea or constipation. He denies recent upper respiratory infection or urinary tract infection symptoms. He does complain of persistent pain in the left hip and pain with weightbearing activities in the left hip. PHYSICAL EXAMINATION: GENERAL: He is well-nourished, well-developed in no acute distress, alert male patient who walks with a moderate limp favoring the left lower extremity. He is using a single-leg cane. VITAL SIGNS: He is 5 feet 9-1/2, weighs to 207.6 pounds with a temperature of 98.0, blood pressure 131/77, pulse of 60 and respirations of 18. Neck was supple without adenopathy or jugular venous distension. There were no carotid bruits appreciated upon auscultation. LUNGS: were clear to auscultation without rales or wheeze throughout. HEART: Regular rate and rhythm. ABDOMEN: Bowel sounds were present. EXTREMITIES: Examination of the hip revealed intact skin. He had decreased range of motion secondary to pain and stiffness. The limb is neurovascularly intact. LABORATORY DATA: Glucose 83, BUN 21, creatinine 1.06, sodium 140, potassium 4.0. CBC showed MCHC of 31.7, otherwise within normal limits. UA was within normal limits with a specific gravity 1.023. Chest x-ray and EKG are pending. IMPRESSION: Symptomatic osteoarthritis of the left hip joint. PLAN: Consented for a left total hip arthroplasty by Dr. Rafi Gonzales.
[~2018-08-06] VITALS: Ht 177.8 cm; Wt 93.4 kg
[~2018-08-06 09:29] MED LIST changes: +CelecoXIB 400 MG CAP PO ONE; +LR 1,000 ML IV ONE; +PERCOCET 5MG/325MG TAB PO ONE; +PREGABALIN 75 MG CAP(LYRICA) PO ONE; +ceFAZolin SOD 1 GM in D5W MINI-BAG PLUS 50 ML IV ONE
[2018-08-06] MEDS ORDERED: ceFAZolin 1GM INJ (J0690 PER 500MG) As Ordered ONE ×2 (10:00→12:25)
[2018-08-06 10:36] LABS: INR 0.92; PROTHROMBIN TIME 12.4 SECONDS (12.1-14.4)
[2018-08-06] MEDS ORDERED: fentaNYL 100 MCG/2 ML INJECTION (J3010) As Ordered ONE (11:37)
[2018-08-06] MEDS ORDERED: MIDAZOLAM INJ 2 MG/2 ML VIAL (J2250) As Ordered ONE (11:38)
[2018-08-06] MEDS ORDERED: BUPIVACAINE HCL 0.5% 30 ML VIAL As Ordered ONE (12:25)
[2018-08-06] MEDS ORDERED: TRANEXAMIC ACID 100 MG/ML 10ML VIAL As Ordered ONE (12:25)
[2018-08-06] MEDS ORDERED: BUPIVACAINE/EPIN 0.25% 30 ML VIAL As Ordered ONE (12:25)
[2018-08-06] MEDS ORDERED: BUPIVACAINE LIPOSOME/PF 1.3% 20ML VIAL (13.3MG/ML)(EXPAREL)(C9290 PER1MG) As Ordered ONE (12:26)
[2018-08-06] MEDS ORDERED: EPINEPHrine INJ 1 MG/ML 1ML AMP As Ordered ONE (12:34)
[2018-08-06] MEDS ORDERED: PROPOFOL 500 MG/50 ML VIAL As Ordered ONE (12:55)
[2018-08-06] MEDS ORDERED: PHENYLEPHRINE INJ 10MG/ML VIAL (J2370) As Ordered ONE (13:22)
[2018-08-06] MEDS ORDERED: LIDOCAINE 2% INJ 100 MG/5 ML SDV (FOR ANES.) As Ordered ONE (13:22)
[2018-08-06] MEDS ORDERED: PERCOCET 5MG/325MG TAB PO PRN ×2 (15:45)
[2018-08-06] MEDS ORDERED: NORTRIPTYLINE 10 MG CAP PO PRN (15:45)
[2018-08-06] MEDS ORDERED: FLEET ENEMA PR PRN (15:45)
[2018-08-06] MEDS ORDERED: MEPERIDINE INJ 25 MG/ML VIAL (J2175) IV PRN (15:45)
[2018-08-06] MEDS ORDERED: fentaNYL 100 MCG/2 ML INJECTION (J3010) IV PRN (15:45)
[2018-08-06] MEDS ORDERED: ONDANSETRON 4MG/2ML VIAL (J2405) IV PRN (15:45)
[2018-08-06] MEDS ORDERED: HYDROMORPHONE HCL 0.5 MG/ 0.5 ML SYRINGE (J1170 PER 1) IV PRN ×4 (15:45)
[2018-08-06] MEDS ORDERED: ACETAMINOPHEN TAB 650MG DOSE (2X325MG) PO PRN (15:45)
[2018-08-06] MEDS ORDERED: PROMETHAZINE INJ 25 MG/ML VIAL (J2550) IV PRN (15:45)
[2018-08-06] MEDS ORDERED: LR 1,000 ML IV SCH (15:45)
[2018-08-06] MEDS ORDERED: METOCLOPRAMIDE INJ 10MG/2ML VIAL (J2765) IV PRN (15:45)
--- NOTE | 2018-08-06 16:16 | REP ---
Portable left hip two views: There is a total hip arthroplasty. The components are tightly applied and in satisfactory positions alignment. There is no fracture or dislocation. No calcifications or foreign bodies. Electronically Signed by Reymundo Tavera MD 08/06/2018 04:07 P
[2018-08-06 16:30] VITALS: BP 118/83
[2018-08-06 17:00] VITALS: BP 128/74
[2018-08-06] MEDS: GABAPENTIN 300 MG CAP PO SCH ×2 (17:23→20:34)
[2018-08-06] MEDS: PERCOCET 5MG/325MG TAB PO PRN (17:23)
[2018-08-06 18:00] VITALS: BP 129/76
[2018-08-06 19:00] VITALS: BP 136/89
[2018-08-06 20:00] VITALS: BP 130/86
[2018-08-06 22:00] VITALS: BP 137/90
[2018-08-07 02:00] VITALS: BP 132/76
[2018-08-07] MEDS: PERCOCET 5MG/325MG TAB PO PRN (04:47)
[2018-08-07 05:55] LABS: HEMOGLOBIN 11.9 g/dl (13.5-17.5); MEAN CORPUSCULAR HEMOGLOBIN 30.1 pg (27.0-33.0); MEAN CORPUSCULAR HGB CONC 33.1 g/dl (32.0-36.5); MEAN CORPUSCULAR VOLUME 91.1 fl (80.0-96.0); PLATELET COUNT, AUTOMATED 165 10^3/uL (150-450); RED BLOOD COUNT 3.95 10^6/uL (4.30-6.10); WHITE BLOOD COUNT 4.2 10^3/uL (4.0-10.0)
[2018-08-07 06:00] VITALS: BP 134/64
[2018-08-07] MEDS ORDERED: PERC5TAB12 PO (06:48)
--- NOTE | 2018-08-07 07:17 | RO ---
DATE OF PROCEDURE: 08/06/2018 PREOPERATIVE DIAGNOSIS: Left hip avascular necrosis. POSTOPERATIVE DIAGNOSIS: Left hip avascular necrosis. PROCEDURE PERFORMED: Left total hip replacement. SURGEON: Rafi Gonzales MD COSTUME MAKER: ELOY Andrade ANESTHESIA: Spinal. ESTIMATED BLOOD LOSS: Less than 150 mL, replaced with crystalloid. COMPLICATIONS: No complications. COMPONENTS USED: Included DePuy [place] system, size 4 femoral stem, +8 neck length, 36 mm stainless steel femoral head, 36 mm AltrX polyethylene liner, 52 mm cup, Sneads hole eliminator. INDICATIONS: Progressive discomfort in the left hip in this 53-year-old gentleman with multiple medical comorbidities. He has elected for operative intervention. Consent was reviewed in detail including a michell discussion of pathology involved, procedure proposed, alternatives including doing nothing, and risks including but not limited to, pain, failure, infection, bleeding, blood loss, incomplete relief of symptoms, need for additional surgery, dislocation and other issues. The patient agrees to proceed. OPERATIVE COURSE: Identified in the holding area, site and side verified, brought to the operating room. Once spinal anesthesia was administered he was positioned in the lateral decubitus position for exposure of the left hip for arthroplasty. Once I and the dermatology nurse were comfortable with the patient's positioning, he was then sterilely prepped and draped. I stood on the posterior, Mr. Jean Baptiste stood on the anterior. This approach was the modified Hardinge approach. The incision outlined with a marking pen, infiltrated with 0.25% Marcaine with epinephrine, made with a 10 blade knife developed down through skin and subcuticular tissues to the lateral fascia over the hip. The lateral fascia was split over the greater trochanter and this was reflected anteriorly. A slit was created in the abductor mechanism at the anterior one-third position and Mr. Jean Baptiste positioned Meyerding retractors so we could dissect down to the minimus and hip capsule which was split using the hot knife up to the acetabular labrum and also I did release the reflected head of the vastus. Next, the anterior one-third of the abductor mechanism was tagged with a tag stitch and then reflected off of the greater trochanter leaving a cuff of tissue for later repair. The dissection continued distally into the vastus lateralis which was split, dissection continued opening the hip capsule so that the lesser trochanter could be palpated. Next, the hip was then dislocated using the bone hook and trochanteric retractors were utilized to further expose. Next, I utilized the canal opening reamer, followed by the canal finding reamer, followed by the lateralizing reamer, followed by conical reamers through a size 4. Size 4 seemed to fit appropriately and that is also the size that had been used on his contralateral hip some years ago. Next, template was installed. Oscillating saw was utilized to make the femoral neck cut based on palpation of lesser trochanter. Next, box sealing machine operator was utilized to clear the calcar and then rasps were utilized through a size 4, which seemed to fit appropriately, slightly proud, but the neck cut was slightly short. Next, once this was accomplished the hip was placed into the sterile bag, anterior and posterior retractors were applied. Once this was accomplished the hip was removed from the sterile bag, anterior and posterior retractors were applied. We cleared the acetabular labrum as well as the acetabular fossa. This was done with a hot knife. The transverse acetabular ligament was removed. Some hypertrophic synovium at the inferior capsule was also removed and sent with the hip pathology. Next, hemispherical reamers were utilized to ream the acetabulum while the previous hip replacement done by Dr. Briones, reamed up through a size 55, we felt that a size 51 seemed to reveal bleeding acetabular bone and good fit. We trialed a size 52 which fit appropriately. Next, we irrigated including irrigation with capital TXA solution which was allowed to stand for 1 minute. We then implanted the non trial acetabulum using the targeting device. This was impacted with a mallet. Sneads hole eliminator was installed. Non trial 36 mm polyethylene was installed and tamped into place. We verified that it as well seated. Next, once this was accomplished the hip was again placed in the bag, trial femoral stem was applied, +8 neck length with a 36 mm head. We reduced the hip, we placed the hip through a range of motion. The hip was stable in flexion and with internal rotation as well as extension and external rotation. We directly visualized the hip, which seemed to be fitting appropriately. Next, the trial component was then dislocated and removed. Irrigation was accomplished and the non trial stem was obtained and implanted. Pulse lavage irrigation had been implemented. Next, the trunnion was cleaned with a dry lap and the 36 mm head was impacted using a nylon impactor. Next, the hip was again reduced. Irrigation was accomplished. It was again placed through a range of motion and stability was similar. Next, Mr. Jean Baptiste positioned Meyerding's and I reapproximated the capsule and minimus tissues with interrupted stitch followed by reapproximation of the abductor mechanism anterior aspect with interrupted and mattress stitch, as well running stitch on the vastus lateralis. Lateral fascia was reapproximated with interrupted stitch and running STRATAFIX stitch. The Vi's fascia was reapproximated, deep dermis was reapproximated, and Prineo dressing was applied. Next, also prior to hip closure we did instill approximately 40 mL of Exparel, long-acting Marcaine solution mixed with saline solution using a spinal needle around the soft tissues, fascial tissues and subcuticular tissues of the hip for perioperative pain control. Next, once the wound was closed, the patient was moved to the supine position and moved to the hospital bed in good condition. Mr. Jean Baptiste was present and participated in the entirety of the case. For further details, please refer to medical record.
[2018-08-07] MEDS ORDERED: VITAMIN D 1,000 INTERNATIONAL UNITS TABLET PO SCH (09:00)
[2018-08-07] MEDS ORDERED: MOM 30ML SUSPENSION UDC PO SCH (09:00)
[2018-08-07] MEDS ORDERED: METAMUCIL (PSYLLIUM) PACKET PO SCH (09:00)
[2018-08-07] MEDS ORDERED: MIRALAX *UNIT DOSE* 17GM PACKET PO SCH (09:00)
[2018-08-07] MEDS: GABAPENTIN 300 MG CAP PO SCH (09:06)
[2018-08-07] MEDS ORDERED: RIVAROXABAN 10 MG TAB (XARELTO) PO SCH ×2 (09:45→18:00)
[2018-08-07 09:50] VITALS: O2SAT 96
[2018-08-07 10:00] VITALS: BP 114/72
== END 2018-08-07 10:45 | disposition home or self-care (01) | DRG 470 ==
LOC: M OR 09:29 → M MS5PR 16:20
PROVIDERS: ADMIT Orthopaedic Surgery; ATTEND Orthopaedic Surgery
PROC: 0SRB02Z Replacement of Left Hip Joint with Metal on Polyethylene Synthetic Substitute, Open Approach (ICD-10-PCS; principal; 2018-08-06 11:10)
DX: M16.12 Unilateral primary osteoarthritis, left hip (principal); M87.052 Idiopathic aseptic necrosis of left femur; G47.33 Obstructive sleep apnea (adult) (pediatric); K21.9 Gastro-esophageal reflux disease without esophagitis; R26.89 Other abnormalities of gait and mobility; M51.37 Other intervertebral disc degeneration, lumbosacral region; M48.061 Spinal stenosis, lumbar region without neurogenic claudication; Z96.641 Presence of right artificial hip joint; Z85.79 Personal history of other malignant neoplasms of lymphoid, hematopoietic and related tissues

== ENCOUNTER → 2018-11-16 | Outpatient (CLI) | payer OTHER ==
[~2018-11-16] MED LIST changes: -CelecoXIB 400 MG CAP PO ONE; -LR 1,000 ML IV ONE; -PERCOCET 5MG/325MG TAB PO ONE; -PREGABALIN 75 MG CAP(LYRICA) PO ONE; +PROHANCE 279.3MG/ML 15ML VIAL (A9576) As Ordered ONE; +PROHANCE 279.3MG/ML 5ML VIAL (A9576) As Ordered ONE; -ceFAZolin SOD 1 GM in D5W MINI-BAG PLUS 50 ML IV ONE
--- NOTE | 2018-11-19 19:37 | REPVR ---
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 Contrast material: PROHANCE; Contrast volume: 18 ml; Contrast route: 23 G BUTTERFLY; COMPARISON: No relevant prior studies available. FINDINGS: This examination is submitted for interpretation at 6:45 PM EDT on 11/19/2018. Limitations: Motion induced image degradation is present. The study is also limited for the evaluation of myeloma lesions by the lack of T1 weighted imaging through vertebral bodies. Vertebrae: Evaluation of vertebral levels beginning at C1 demonstrate 7 cervical type vertebral bodies, 12 thoracic type vertebral bodies and 6 lumbar type vertebral bodies. For the purposes of this examination, S1 is considered to be lumbarized. There is a mild compression deformity of the superior endplate of S1 and there are findings consistent with degenerative disc disease at S1-S2, which is incompletely evaluated, and seen only on the sagittal full spine survey sequence performed for vertebral leveling purposes. There is heterogeneous signal and heterogeneous enhancement throughout thoracic vertebral bodies suspicious for changes associated with multiple myeloma. This could be further characterize with CT or PET/CT scan of the thoracic spine as clinically indicated. There is a mild superior endplate compression fracture deformity of T7 with mild bone marrow edema signal, raising the suspicion for a subacute fracture. However, these changes may also be secondary to underlying myeloma. No retropulsed bony fragment is identified. There is an old severe anterior wedge fracture deformity of the T8 vertebral body. There is mild posterior retropulsion of the T8 inferior endplate effacing the anterior thecal sac without cord impingement or abnormal cord signal. Spinal cord: The signal changes present within the cord are likely secondary to motion induced artifact. A tiny cord lesion is not completely excluded, however. Discs/Spinal canal/Neural foramina: There is mild posterior broad-based disc protrusion at T6-T7, with effacement of the anterior thecal sac without cord impingement. There are mild posterior disc bulges at T11-T12, T12-L1 and L1-L2, without focal disc protrusion or spinal stenosis. Soft tissues: No paraspinal mass is identified. IMPRESSION: 1. Slightly suboptimal examination secondary to motion induced image degradation and lack of T1 weighted images through the vertebral bodies. 2. Heterogeneous signal and enhancement changes throughout the thoracic spine, suspicious for changes of known multiple myeloma. Consider correlation with CT or PET/CT scan as clinically indicated. 3. Mild compression deformity of the superior endplate of T7 without retropulsed bone fragment or cord impingement. Signal changes within the T7 vertebral body raise the suspicion for acute/subacute fracture. However, these changes may be secondary to underlying myeloma. 4. Old severe anterior wedge fracture deformity of T8 with mild retropulsion of the T8 inferior endplate without cord impingement or high-grade spinal stenosis. 5. Degenerative spondylosis of the thoracic spine without cord impingement or significant spinal stenosis. Electronically signed by: Greg Ricci On 11/19/2018 19:37:23 PM
== END ==
LOC: M RAD 17:11
PROVIDERS: ATTEND Nurse Practitioner Family
DX: C90.00 Multiple myeloma not having achieved remission (principal)
CPT/HCPCS: 72157; A9576

== ENCOUNTER → 2019-01-07 | Outpatient (REF) | payer OTHER ==
[~2019-01-07] MED LIST changes: -PROHANCE 279.3MG/ML 15ML VIAL (A9576) As Ordered ONE; -PROHANCE 279.3MG/ML 5ML VIAL (A9576) As Ordered ONE
[2019-01-07 11:04] LABS: RHEUMATOID FACTOR QUANT < 10.0 IU/ML (<15.0)
[2019-01-07 14:54] LABS: FOLATE 11.9 NG/ML (>5.4)
[2019-01-07 14:59] LABS: VITAMIN B12 LEVEL 356 PG/ML (247-911)
[2019-01-11 08:06] LABS: ANCA-ATYPICAL <1:20 titer (Neg:<1:20); ANTI DS-DNA AB <1:10 titer (.); ANTINUCLEAR ANTIBODIES DIRECT Negative (Negative); CYTOPLASMIC NEUTROP AB ANCA-C <1:20 titer (Neg:<1:20); Lyme Disease IgG/IgM Antibodie <0.91 ISR (0.00-0.90); Lyme Disease IgM Ab Quantitati <0.80 index (0.00-0.79); PERINUCLEAR AB ANCA-P <1:20 titer (Neg:<1:20); SJOGREN'S ANTI SS-A <0.2 AI (0.0-0.9); SJOGREN'S ANTI SS-B <0.2 AI (0.0-0.9); VITAMIN B1 LEVEL WHOLE BLOOD 86.3 nmol/L (66.5-200.0); VITAMIN B6,PYRIDOXAL PHOSPHATE 9.3 ug/L (5.3-46.7); VITAMIN E(ALPHA TOCOPHEROL) 11.4 mg/L (7.0-25.1); VITAMIN E(GAMMA TOCOPHEROL) 2.3 mg/L (0.5-5.5)
[2019-01-15 08:54] LABS: DRVV SCREEN 40.6 SEC
== END ==
LOC: M LABNEURO 08:44
PROVIDERS: ATTEND Psychiatry & Neurology Neurology
DX: G62.9 Polyneuropathy, unspecified (principal)

== ENCOUNTER → 2020-05-22 | Outpatient (CLI) | payer OTHER ==
[~2020-05-22] MED LIST changes: +ASPI81CH33 PO; -ASPI81TA85 PO; +ASPI81TA86 PO; +BOTO10VL IM; +OXYC-1 PO; -OXYC15TA76 PO
--- NOTE | 2020-05-24 17:11 | REP ---
INDICATION: OTHER SPONDYLOSIS WITH RADICULOPATHY, CERVICAL REGION. COMPARISON: None. TECHNIQUE: AP, lateral, open mouth views of the cervical spine. FINDINGS: Evidence for prior anterior fixation at C5-C7. Advanced degenerative changes at C3-4, C4-5 and moderate degenerative changes at C2-3. Findings include endplate sclerosis, marginal spurring, disc space narrowing. No evidence for acute fracture/compression injury or subluxation. Alignment is relatively maintained. IMPRESSION: Evidence for prior anterior fixation. Moderate/advanced multilevel degenerative changes at C2 through C5. <Electronically signed by Ermias White > 05/24/20 [id number]
== END ==
LOC: M RAD 15:49
PROVIDERS: ATTEND Neurological Surgery
DX: M47.22 Other spondylosis with radiculopathy, cervical region (principal); Z98.1 Arthrodesis status

== ENCOUNTER → 2020-08-18 | Outpatient (CLI) | payer OTHER ==
[~2020-08-18] MED LIST changes: +ACYC1TAB PO; -ACYC400T PO
--- NOTE | 2020-08-18 11:15 | REP ---
INDICATION: OTHER SPONDYLOSIS WITH RADICULOPATHY, CERVICAL REGION. COMPARISON: Plain film study 05/22/2020. TECHNIQUE: Plain film study of the cervical spine includes AP and lateral views FINDINGS: There is prior anterior fixation at C5-C7. Advanced degenerative changes are noted at C3-4, C4-5 and moderate degenerative changes at C2-3. Findings include endplate sclerosis, marginal spurring, disc space narrowing. No evidence for acute fracture/compression injury or subluxation. Alignment is relatively maintained. When compared to the prior study of 05/22/2020, no significant changes. IMPRESSION: Anterior fixation with hardware C5 through C7. No acute findings. No significant change from the comparison study of 05/22/2020. <Electronically signed by Jaime Burch > 08/18/20 [id number]
== END ==
LOC: M RAD 10:48
PROVIDERS: ATTEND Neurological Surgery
DX: M47.22 Other spondylosis with radiculopathy, cervical region (principal)

== ENCOUNTER → 2023-10-03 | Outpatient (CLI) | payer OTHER ==
[~2023-10-03] MED LIST changes: -ASPI-161 PO; +ASPI-615 PO; +BOTO200I
== END ==
LOC: M WHC 08:43
PROVIDERS: ATTEND Specialist
DX: Z79.52 Long term (current) use of systemic steroids (principal)

== ENCOUNTER → 2024-11-18 | Outpatient (REF) | payer OTHER ==
[~2024-11-18] MED LIST changes: +ACYC-438 PO; -ACYC1TAB PO; +AZIT-10 PO; +GABA-1171 PO
[2024-11-18 17:05] LABS: APPEARANCE, URINE CLEAR (CLEAR); BACTERIA, URINE AUTO NEGATIVE (NEGATIVE); BILIRUBIN, URINE AUTO NEGATIVE (NEGATIVE); BLOOD, URINE BLOOD NEGATIVE (NEGATIVE); GLUCOSE, URINE (UA) AUTO NEGATIVE (NEGATIVE); KETONE, URINE AUTO NEGATIVE (NEGATIVE); LEUKOCYTE ESTERASE, URINE AUTO NEGATIVE (NEGATIVE); NITRITE, URINE AUTO NEGATIVE (NEGATIVE); PROTEIN, URINE AUTO NEGATIVE (NEGATIVE); RBC, URINE AUTO 0 /HPF (0-3); SPECIFIC GRAVITY URINE AUTO 1.009 (1.002-1.035); SQUAMOUS EPITHELIAL CELL UR AU 0 /HPF (0-6); UROBILINOGEN, URINE AUTO 0.2 mg/dL (0.0-2.0); WBC, URINE AUTO 1 /HPF (0-3)
== END ==
LOC: M LAB REF 16:42
PROVIDERS: ATTEND Physician Assistant Medical
DX: N39.0 Urinary tract infection, site not specified (principal)

== ENCOUNTER → 2024-12-31 | Outpatient (CLI) | payer OTHER | LOC: M PLAIMG 11:59 | PROVIDERS: ATTEND Registered Nurse | DX: R10.32 Left lower quadrant pain (principal); R93.3 Abnormal findings on diagnostic imaging of other parts of digestive tract; R93.49 Abnormal radiologic findings on diagnostic imaging of other urinary organs ==